=== PATIENT | male | born 1965 | race Caucasian/White ===

== ENCOUNTER 2017-09-06 02:55 | Emergency (ER) | payer OTHER ==
[~2017-09-06 02:55] MED LIST: BYSTOLIC 5MG5 MG PO; LISINOPRIL/HCTZ1 TAB PO; MEDROL DOSEPAK1 PAC PO; VICODIN 300 MG-1 TAB PO
[2017-09-06 03:00] VITALS: BP 142/87
--- NOTE | 2017-09-06 03:30 | ED UPPER/LOWER EXTREMITY COMPL ---
History of Present Illness General Chief Complaint: Lower Extremity Problems Stated Complaint: LEFT LEG PAIN Source: patient Exam Limitations: no limitations Vital Signs & Intake/Output Vital Signs & Intake/Output Vital Signs Date Time Temp Pulse Resp B/P B/P Pulse O2 O2 Flow FiO2 Mean Ox Delivery Rate 09/06 0300 97.0 85 18 142/87 98 Room Air Allergies Coded Allergies: NO KNOWN ALLERGIES (04/28/14) Reconcile Medications Colchicine 0.6 MG TABLET 1-2 TAB PO TID PRN gout HYDROCODONE/ACETAMINOPHEN (Vicodin 5-300 MG Tablet) 5 MG-300 MG TABLET 1-2 TAB PO Q6P PRN KNEE PAIN Indomethacin 50 MG CAPSULE 1 CAP PO TID PRN gout / pain with food LISINOPRIL/HYDROCHLOROTHIAZIDE (Lisinopril-Hctz 10-12.5 MG Tab) 10 MG-12.5 MG TABLET 1 TAB PO DAILY HTN (Reported) Methylprednisolone. (Medrol) 4 MG TAB.DS.PK 1 PAC PO DAILY KNEE PAIN Nebivolol (Bystolic) 5 MG TABLET 1 TAB PO DAILY HTN (Reported) Oxycodone HCl/Acetaminophen (Percocet 5-325 MG Tablet) 5 MG-325 MG TABLET 1 TAB PO 4XDP PRN PAIN TEN...[id number] Prednisone 50 MG TABLET 1 TAB PO DAILY gout Triage Nurses Notes Reviewed? yes Onset: Gradual Duration: day(s): Timing: recent history Severity: moderate Pain/Injury Location: Left: Knee, Foot, Ankle. Method of Injury: unknown Modifying Factors: Improves With: rest. Associated Symptoms: swelling HPI: 51 yo gentleman h/o gout presents with recurrent flare. He notes that 2 days ago, he had his typical gouty pain occur in his left hallux , when then progressed to his left ankle and then to his left knee, associated with pain and mild joint swelling. He notes no injury. He is otherwise well. Past History Travel History Traveled to [place] past 21 day No Medical History Any Pertinent Medical History? see below for history Cardiovascular: hypertension Musculoskeletal: gout Surgical History Surgical History: none Psychosocial History What is your primary language Slovenian Family History Hx Contributory? No Review of Systems Review of Systems Constitutional: Reports: no symptoms. EENTM: Reports: no symptoms. Respiratory: Reports: no symptoms. Cardiovascular: Reports: no symptoms. Gastrointestinal/Abdominal: Reports: no symptoms. Genitourinary: Reports: no symptoms. Musculoskeletal: Reports: no symptoms. Skin: Reports: no symptoms. Neurological/Psychological: Reports: no symptoms. Hematologic/Endocrine: Reports: no symptoms. Immunological: Reports: no symptoms. All Other Systems: Reviewed and Negative Physical Exam Physical Exam General Appearance: well developed/nourished, mild distress Head: atraumatic Eyes: Bilateral: normal appearance. Ears, Nose, Throat: normal pharynx, normal ENT inspection, hearing grossly normal Neck: normal inspection, supple Cardiovascular/Respiratory: regular rate/rhythm Back: normal inspection Leg Left: mild effusion around left knee, left ankle. not hot to touch. ROM is normal, but associated with discomfort. no erythema. Skin: intact, normal color, warm/dry Lymphatic: no anterior cervical heidi Progress Differential Diagnosis: gout vs sprain vs other. Plan of Care: gave rx for supportive meds... advocated close follow up. Departure Departure Disposition: HOME OR SELF CARE Condition: Stable Clinical Impression Primary Impression: Acute gouty arthritis Referrals: Fely Mcdonough MD (PCP/Family) Departure Forms: Customer Survey General Discharge Information Prescriptions: Current Visit Scripts Prednisone 1 TAB PO DAILY #5 TAB Colchicine 1-2 TAB PO TID PRN gout #30 TAB Ref 1 Indomethacin 1 CAP PO TID PRN gout / pain #30 CAP with food Oxycodone HCl/Acetaminophen (Percocet 5-325 MG Tablet) 1 TAB PO 4XDP PRN PAIN #10 TAB TEN...[id number]
[2017-09-06] MEDS ORDERED: COLCHICINE0.6 M2 PO (03:43)
[2017-09-06] MEDS ORDERED: PREDNISONE50 M1 PO (03:43)
[2017-09-06] MEDS ORDERED: PERCOCET 5-3251 EACH PO (03:43)
[2017-09-06] MEDS ORDERED: INDOMETHACIN50 M1 PO (03:43)
== END 2017-09-06 03:52 ==
LOC: ERH 02:55
DX: M10.9 Gout, unspecified (principal)